=== PATIENT | male | born 1950 | race Caucasian/White ===

== ENCOUNTER → 2017-07-15 15:57 | Outpatient (CLI) | payer MEDICARE, SELFPAY ==
--- NOTE | 2017-07-15 16:00 | CT_ITS ---
STUDY: CTA CHEST REASON FOR EXAM: Male, 67 years old. Right axillary mass. Aortic aneurysm. Lung nodules. History of diabetes. RADIATION DOSAGE (If Supplied By Facility): CTDIvol = ( 15.67 ) mGy, DLP = ( 778.35 ) mGycm TECHNIQUE: The examination was performed with the intravenous administration of 100mL ml of Isovue 370 contrast material. Post-processing of the angiographic images was performed, with multiplanar reformation and 3D reconstruction. Individualized dose optimization techniques were used for this CT. COMPARISON: CTA of the chest, August 13, 2016. FINDINGS: Normal enhancement of the main pulmonary artery and right and left pulmonary arteries. Normal enhancement of the bilateral peripheral pulmonary arteries. There is no demonstrated pulmonary embolism. Again seen is a small focal aneurysm of the abdominal aortic arch with a maximum diameter of 3.5 x 3.6 cm. The aortic arch is mildly tortuous. There is no atherosclerotic changes There is no demonstrated aortic dissection. Normal heart and pericardium. Normal mediastinum. Normal hilar regions. Normal visualized trachea and bronchi. The lungs are hyper expanded, with flattening of the hemidiaphragms. There are bullae in the bilateral lung apices. There is a 5 mm calcified granuloma in the subpleural anterior right upper lobe (image 29, series 2) there is a 2 mm noncalcified granuloma in the right upper lobe best seen on image 31. Again seen is a calcified granuloma in the periphery of the right lower lobe measuring 3 mm. This is best seen on image 90, series 2. Also again seen is the 3 mm soft tissue nodule in the left lower lobe best seen on image 48 of series 2. No other pulmonary nodules are noted. There is no acute infiltrate or mass. Normal pleura. Again seen is a soft tissue mass in the right axilla measuring 4.2 x 3.1 x 3.3 cm. There are degenerative changes of thoracic spine. There is scarring in the upper pole of the left kidney. Again seen is a gallstone within the contracted gallbladder. There is colonic diverticulosis. CT/CTA Chest W/WO Contrast IMPRESSION: 1. No evidence of pulmonary embolus. 2. Mild fusiform dilatation of the mid aortic arch. This appears slightly enlarged when compared to the prior study. 3. Stable pulmonary nodules when compared to the prior study. 4. Stable emphysematous changes. 5. Stable right axillary mass. This most likely represents an enlarged lymph node. 6. Stable abdominal findings Electronically Signed: Hans Hooks DO at 17:37 EDT Tel [phone], Service support ,
[2017-07-15 16:25] LABS: CREATININE FINGERSTICK 0.9 mg/dL (0.70-1.30); EGFR FINGERSTICK > 60.0000 mL/min (>60)
== END ==
PROVIDERS: Family Provider Family Medicine; Visit Provider Family Medicine
DX: R22.2 Localized swelling, mass and lump, trunk (principal); R91.8 Other nonspecific abnormal finding of lung field; I71.9 Aortic aneurysm of unspecified site, without rupture
CPT/HCPCS: 71275; Q9967